=== PATIENT | male | born 1945 | race Caucasian/White ===

== ENCOUNTER 2021-06-18 16:34 | Inpatient (IN) | payer MEDICARE, OTHER ==
[~2021-06-18] VITALS: Ht 172.7 cm; Wt 59.9 kg
--- NOTE | 2021-06-18 16:34 | NUR ---
PT BIB [facility],WAS THERE BECAUSE OF COUGHING X FEW DAYS. PT IS AAOX3, NOT IN RESPIRATORY DISTRESS, HOOKED TO O2 AT 3 LPM VIA NC, HOOKED TO BUSINESS OBJECTS CONSULTANT, KEPT RESTED AND COMFORTABLE. WILL CONTINUE TO MONITOR.
--- NOTE | 2021-06-18 16:56 | NUR ---
SEEN AND EXAMINED BY .
[2021-06-18] MEDS ORDERED: IPRATROPIUM NEB FS 0.5 MG/2.5 ML AMPUL.NEB NEB ONE (17:00)
[2021-06-18] MEDS ORDERED: methylPREDNISolone SOD SUCC 125 MG/2ML VIAL IV ONE (17:00)
[2021-06-18] MEDS ORDERED: IV NS 0.9% 500 ML IV ONE (17:00)
[2021-06-18] MEDS ORDERED: ALBUTEROL FS 2.5 MG/3 ML VIAL.NEB NEB ONE (17:00)
--- NOTE | 2021-06-18 17:20 | NUR ---
IV LINE ESTABLISHED BLOOD DRAWN AND SENT TO LAB.
[2021-06-18] MEDS ORDERED: methylPREDNISolone SOD SUCC 125 MG/2ML VIAL ONE (17:27)
[2021-06-18 17:28] LABS: BASOPHILS # (AUTO) 0.1 K/uL (0.0-0.2); BASOPHILS % (AUTO) 0.6 % (0.0-2.0); EOSINOPHILS % (AUTO) 1.3 % (0.0-6.0); HEMATOCRIT 47 % (39-51); HEMOGLOBIN 15.6 g/dL (13.5-17.5); LYMPHOCYTES # (AUTO) 1.9 K/uL (0.8-4.8); LYMPHOCYTES % (AUTO) 16.1 % (20.0-44.0); MEAN CORPUSCULAR HGB CONC 34 g/dl (31.0-36.0); MEAN CORPUSCULAR VOLUME 85 fL (80-96); MONOCYTES # (AUTO) 0.7 K/uL (0.1-1.30); MONOCYTES % (AUTO) 6.4 % (2.0-12.0); NEUTROPHILS # (AUTO) 8.8 K/uL (1.8-8.9); NEUTROPHILS % (AUTO) 75.6 % (43.0-81.0); PLATELET COUNT (AUTO) 259 K/uL (150-450); RED BLOOD CELL COUNT(AUTO) 5.47 MIL/uL (4.5-6.0); WHITE BLOOD COUNT (AUTO) 11.6 K/uL (4.3-11.0)
--- NOTE | 2021-06-18 17:30 | NUR ---
FULL STACK SOFTWARE ENGINEER AT BEDSIDE FOR XRAY.
[2021-06-18] MEDS ORDERED: ALBUTEROL FS 2.5 MG/3 ML VIAL.NEB ONE (17:33)
[2021-06-18] MEDS ORDERED: IPRATROPIUM NEB FS 0.5 MG/2.5 ML AMPUL.NEB ONE (17:33)
[2021-06-18 18:03] LABS: BILIRUBIN,DIRECT 0.3 mg/dL (0.0-0.2); BILIRUBIN,TOTAL 1.2 mg/dL (0.2-1.0); CALCIUM, SERUM 8.7 mg/dL (8.5-10.1); CREATININE 1.1 mg/dL (0.6-1.3); POTASSIUM 4.4 mmol/L (3.5-5.1); TOTAL PROTEIN, SERUM 7.3 g/dL (6.4-8.2)
--- NOTE | 2021-06-18 18:11 | NUR ---
MOVE SHEET SUBMITTED AND CALLED FOR TELE BED.
--- NOTE | 2021-06-18 19:21 | NUR ---
BED ASSIGNMENT: 200
--- NOTE | 2021-06-18 21:44 | NUR ---
REPORT GIVEN TO NURSE MS2
[2021-06-18 22:10] VITALS: BP 135/76
--- NOTE | 2021-06-18 22:13 | NUR ---
PT TRANSFERRED UNDER ACLS
[2021-06-18] MEDS ORDERED: ALBUTEROL FS 2.5 MG/0.5 ML VIAL.NEB NEB PRN (22:30)
[2021-06-18] MEDS ORDERED: MAG HYDROX/AL HYDROX/SIMETH 30 ML UDC PO PRN (22:30)
[2021-06-18] MEDS ORDERED: HYDROCODONE/APAP 5/325MG TABLET PO PRN (22:30)
[2021-06-18] MEDS ORDERED: ZOLPIDEM TARTRATE 5 MG TABLET PO PRN (22:30)
[2021-06-18] MEDS ORDERED: ACETAMINOPHEN 325 MG TABLET PO PRN (22:30)
[2021-06-18] MEDS ORDERED: ONDANSETRON HCL/PF 4 MG/2 ML VIAL IVP PRN (22:30)
[2021-06-18] MEDS ORDERED: MAGNESIUM HYDROXIDE 30 ML UDC PO PRN (22:30)
[2021-06-18] MEDS ORDERED: IPRATROPIUM NEB FS 0.5 MG/2.5 ML AMPUL.NEB NEB PRN (22:30)
[2021-06-18] MEDS: ENOXAPARIN SODIUM 40 MG/0.4 ML DISP.SYRIN SQ SCH (22:48)
--- NOTE | 2021-06-18 22:49 | NUR ---
ANTICOAGULANT H/H 15.6 PLT 259 No s/s of bleeding. Lovenox injection given co-signed by WILL Collins.
[2021-06-18 23:52] VITALS: BP 121/81
[2021-06-18] MEDS: methylPREDNISolone SOD SUCC 125 MG/2ML VIAL IV SCH (23:52)
--- NOTE | 2021-06-19 00:05 | NUR ---
ADMISSION 22:07 76 Y/O male A/O x4 ambulatory. [place] to room, unit, staff. Skin checked done, sacrococcyx discoloration, skin photo in the chart. Patient is independent with ADL's and mobility. Covid PCR pending result. On supplemental O2 4L NC, denies chest pain, no c/o SOB. Call light within reach. Will cont to monitor.
[2021-06-19 03:39] VITALS: BP 138/92
[2021-06-19] MEDS: methylPREDNISolone SOD SUCC 125 MG/2ML VIAL IV SCH ×3 (06:12→17:05)
--- NOTE | 2021-06-19 06:13 | NUR ---
END OF SHIFT Patient in bed, A/O x4. On Oxygen support 4L NC Oxygen sat in mid 90's. Denies chest pain. Sinus Tach/ Sinus Rhythm in the Tele monitor. Independent with ADL's and mobility. Plan for PT eval and wound care consult today. Will endorse to oncoming RN.
--- NOTE | 2021-06-19 07:32 | NUR ---
RN OPENING NOTES Patient seen comfortably lying in bed, no SOB, no apparent distress noted, breathing even and unlabored, denies any pain or discomfort at this time, no grimacing. Call light left within reach, safety precautions in place, brakes locked, side rails up X 2, will monitor closely for any changes.
[2021-06-19] MEDS: PANTOPRAZOLE 40 MG TABLET.DR PO SCH (07:58)
[2021-06-19 08:00] VITALS: BP 122/74
--- NOTE | 2021-06-19 18:14 | NUR ---
RN CLOSING NOTES Patient lying in bed, alert, oriented X 4, no apparent distress noted, no shortness of breath, breathing even and unlabored, denies any pain or discomfort, no grimacing, and remained afebrile, no dizziness, no palpitations, no chest pain during shift. All medications given per MD order, tolerating well. No nausea, no vomiting, abdominal bowel sound present in all quadrant, no grimacing when abdomen palpated. Aspiration precautions observed at all times, kept head of bed elevated, all needs anticipated, kept clean and dry, safety precautions in place, side rails up X 2, brakes locked, call light left within reach, will endorse to next shift for continuity of care.
--- NOTE | 2021-06-19 19:15 | NUR ---
IMPLEMENTATION TECHNICIAN NOTES RECEIVED ON BED A/O X4,TALKING TO FAMILY MEMBERS ON HIS CP,BREATHING NON LABORED,O2 4L/NC IN USED,DROPLET ISOLATION,PENDING PCR RESULT,NOTED ON AND OFF PRODUCTIVE COUGH,ABLE TO EXPECTORATE MUCUS.SALINE LOCK RIGHT AC INTACT AND PATENT.CALL LIGHT IN REACH,NEEDS ANTICIPATED.
--- NOTE | 2021-06-19 19:30 | NUR ---
WIND FIELD MANAGER NOTES ST-[facility] ON TELE MONITOR.
[2021-06-19 20:00] VITALS: BP 106/74
[2021-06-19] MEDS: ENOXAPARIN SODIUM 40 MG/0.4 ML DISP.SYRIN SQ SCH (20:41)
[2021-06-20] VITALS: BP 114/80
[2021-06-20] MEDS: methylPREDNISolone SOD SUCC 125 MG/2ML VIAL IV SCH ×4 (00:14→17:40)
--- NOTE | 2021-06-20 02:10 | NUR ---
RN notes Received Pt from WILL De La O. Pt is alert and orientedX4. Respiration on 4L NC. No SOB. No S/S of distress noted. IV site at RAC# 20 is clean, intact and SL. Tele monitor showed s.tachy. SAfety precautions is maintained. Will continue to monitor.
--- NOTE | 2021-06-20 02:15 | NUR ---
RN notes Transferred Pt to room 116 with ACLS protocol and O2 supplementation.
[2021-06-20 04:00] VITALS: BP 126/83
--- NOTE | 2021-06-20 06:41 | NUR ---
RN closing notes Pt is resting in bed comfortably. Pt is alert and orientedX4. Respiration on 4L NC. No SOB. No S/S of distress noted. IV site at RAC# 20 is clean, intact and SL. Tele monitor showed SR hr at 70. Routine meds were given as ordered. Kept Pt clean, dry and comfortable. Safety precautions is maintained. Bed at low position, brakes locked, side rails upX2, hob elevated, and call light is within reach. Will endorse to am nurse for MIRNA.
--- NOTE | 2021-06-20 07:30 | NUR ---
RN OPENING NOTE PATIENT RESTING IN BED COMFORTABLY UPON ASSESSMENT. PATIENT IS A/0X4. PATIENT IS ON 4LPM VIA NASAL CANNULA TOLERATING WELL WITH SPO2 OF 98%. NO SOB OR DISTRESS NOTED AT THIS TIME. RAC PIV IS PATENT AND INTACT. NSR ON TELE IN THE 70'S. PATIENT BED KEPT IN THE LOWEST POSITION AND WHEELS LOCKED IN PLACE. CALL LIGHT WITHIN REACH. ALL SAFETY MEASURES NOTED AND ACCOUNTED FOR. WILL CONTINUE TO MONITOR.
--- NOTE | 2021-06-20 08:03 | NUR ---
WOUND CARE CONSULT: REVIEWED CHART, NURSING DOCUMENTATION AND PHOTO WHICH INDICATES SACRAL DEEP TISSUE INJURY, PRESENT ON ADMISSION. RECOMMENDATIONS MADE FOR SKIN PROTECTION. DISCUSSED WITH NURSING STAFF. PT IS ON [facility] LOW AIRLOSS BED. MD IN AGREEMENT WITH PLAN OF CARE.
[2021-06-20] MEDS: PANTOPRAZOLE 40 MG TABLET.DR PO SCH (08:55)
--- NOTE | 2021-06-20 18:49 | NUR ---
RN CLOSING NOTE PATIENT REMAINED STABLE THROUGHOUT SHIFT. PATIENT RESTING IN BED COMFORTABLY. PATIENT IS A/0X4. PATIENT IS ON 4LPM VIA NASAL CANNULA TOLERATING WELL WITH SPO2 OF 98%. NO SOB OR DISTRESS NOTED AT THIS TIME. RAC PIV IS PATENT AND INTACT. NSR ON TELE IN THE 70'S. PATIENT RECEIVED ALL DUE MEDS ORDERED. PATIENT BED KEPT IN THE LOWEST POSITION AND WHEELS LOCKED IN PLACE. CALL LIGHT WITHIN REACH. ALL SAFETY MEASURES NOTED AND ACCOUNTED FOR. WILL ENDORSE TO GEODETIC ENGINEER RN.
--- NOTE | 2021-06-20 19:10 | NUR ---
RN NOTES RECEIVED REPORT FROM MORNING RN PATIENT IN BED A/O X4. ON OXYGEN INHALATION AT 4 LPM VIA NASAL CANULA SATING 94%. NO DISTRESS NO SOB NOTED AT THIS TIME. WITH IV ACCESS AT R AC #20 INTACT FLUSHES WELL. VITAL SIGNS TAKEN AND RECORDED AFEBRILE. ALL SAFETY MEASURES IN PLACE AT ALL TIMES. CALL LIGHT WITHIN REACH. BED ON LOWEST POSITION AND LOCKED. HOB ELEVATED. WILL CLOSELY MONITOR THE PATIENT
[2021-06-20 20:00] VITALS: BP 107/67
[2021-06-20] MEDS: ENOXAPARIN SODIUM 40 MG/0.4 ML DISP.SYRIN SQ SCH (21:32)
[2021-06-21] VITALS: BP 110/69
[2021-06-21] MEDS: methylPREDNISolone SOD SUCC 125 MG/2ML VIAL IV SCH ×3 (00:04→11:41)
[2021-06-21 04:00] VITALS: BP 118/69
--- NOTE | 2021-06-21 06:56 | NUR ---
RN NOTES PATIENT REMAINED STABLE THROUGHOUT SHIFT. PATIENT RESTING IN BED COMFORTABLY. PATIENT IS A/0X4. PATIENT IS ON 4LPM VIA NASAL CANNULA TOLERATING WELL WITH SPO2 OF 98%. NO SOB OR DISTRESS NOTED AT THIS TIME. RAC PIV IS PATENT AND INTACT. NSR ON TELE IN THE 70'S. PATIENT RECEIVED ALL DUE MEDS ORDERED. PATIENT BED KEPT IN THE LOWEST POSITION AND WHEELS LOCKED IN PLACE. CALL LIGHT WITHIN REACH. ALL SAFETY MEASURES NOTED AND ACCOUNTED FOR. WILL ENDORSE TO MORNING SHIFT RN.
[2021-06-21 07:20] LABS: BASOPHILS % (AUTO) 0.1 % (0.0-2.0); HEMATOCRIT 43 % (39-51); HEMOGLOBIN 14.2 g/dL (13.5-17.5); LYMPHOCYTES # (AUTO) 0.6 K/uL (0.8-4.8); LYMPHOCYTES % (AUTO) 6.8 % (20.0-44.0); MEAN CORPUSCULAR HGB CONC 33 g/dl (31.0-36.0); MEAN CORPUSCULAR VOLUME 87 fL (80-96); MONOCYTES # (AUTO) 0.4 K/uL (0.1-1.30); MONOCYTES % (AUTO) 3.9 % (2.0-12.0); NEUTROPHILS # (AUTO) 8.3 K/uL (1.8-8.9); NEUTROPHILS % (AUTO) 89.2 % (43.0-81.0); PLATELET COUNT (AUTO) 209 K/uL (150-450); RED BLOOD CELL COUNT(AUTO) 4.91 MIL/uL (4.5-6.0); WHITE BLOOD COUNT (AUTO) 9.3 K/uL (4.3-11.0)
--- NOTE | 2021-06-21 07:30 | NUR ---
SHIP ERECTOR OPENING NOTES RECEIVED PATIENT ON BED AWAKE AND A/O X4. ON O2 AT 4LPM VIA NASAL CANNULA TOLERATING WELL. NO SOB NOTED. NOT IN DISTRESS. WITH NO COMPLAINTS OF PAIN OR DISCOMFORT AT THIS TIME. WITH IV ACCESS AT RIGHT AC G20 SALINE LOCKED, PATENT AND INTACT. ON TELE MONITOR CURRENTLY READING SINUS RHYTHM AT 82BPM. SAFETY MEASURES IN PLACED. CALL LIGHT WITHIN REACH. BED ON LOWEST LOCKED POSITION, SIDE RAILS UP X2. WILL CONTINUE TO MONITOR.
--- NOTE | 2021-06-21 08:15 | NUR ---
RN NOTES TRANSFERRED PATIENT TO [facility] AND ENDORSED TO WILL MARRERO.
--- NOTE | 2021-06-21 08:20 | NUR ---
CUE WORKERMACHINE PRECISION ENGRAVER NOTES RECEIVED TRANSFER FROM [facility]. PATIENT MEDICALLY STABLE. WILL CONTINUE TO MONITOR.
[2021-06-21 08:56] LABS: CALCIUM, SERUM 9.1 mg/dL (8.5-10.1); CREATININE 0.9 mg/dL (0.6-1.3); MAGNESIUM 3.3 mg/dL (1.8-2.4); POTASSIUM 5.3 mmol/L (3.5-5.1)
[2021-06-21] MEDS: PANTOPRAZOLE 40 MG TABLET.DR PO SCH (09:11)
[2021-06-21] MEDS ORDERED: SODIUM POLYSTYRENE SULFONATE 15 G/60 ML BOTTLE PO ONE (10:00)
[2021-06-21 12:00] VITALS: BP 135/84
[2021-06-21] MEDS ORDERED: METH4TAB3 PO (12:07)
--- NOTE | 2021-06-21 15:15 | NUR ---
PAINTER BOTTOMSYSTEM DESIGNER NOTES DISCHARGED PATIENT HOME IN MEDICALLY STABLE CONDITION. PATIENT ABLE TO MAKE NEEDS KNOWN. ALL DISCHARE DOCUMENTATION READY AND DISCHARGE TEACHING PROVIDED TO PATIENT; PATIENT VERBALIZED UNDERSTANDING AND PAPERS SIGNED. BELONGINGS ACCOUNTED FOR AND FORM SIGNED WELL. REFUSED PIC. OXYGEN DELIVERED. IV ACCESS REMOVED PRIOR TO LEAVING THE FLOOR. PATIENT LEFT THE UNIT VIA WHEELCHAIR ACCOMPANIED BY RN AND ADOLESCENT MEDICINE SPECIALIST. LEFT IN A PRIVATE CAR.
[2021-06-21 20:39] LABS: ABG BASE EXCESS -2.9 mmol/L; ABG OXYGEN SATURATION 97.5 % (92.0-98.5); ABG PCO2 39.2 mmHg (35.0-45.0); ABG PH 7.368 (7.350-7.450); ABG PO2 105.1 mmHg (75.0-100.0); AaDO2 106.1 mmHg; COHb 1.2 % (0.5-1.5); MetHb 0.2 % (0.0-1.5); O2Hb 96.1 % (94.0-97.0); SITE, ABG Right Radial; VENT MODE, BG 4LPM VIA N/C
[2021-06-21 20:40] LABS: ABG BASE EXCESS 3.1 mmol/L; ABG OXYGEN SATURATION 86.6 % (92.0-98.5); ABG PH 7.422 (7.350-7.450); ABG PO2 50.5 mmHg (75.0-100.0); AaDO2 46.5 mmHg; COHb 1.5 % (0.5-1.5); MetHb 0.1 % (0.0-1.5); O2Hb 85.2 % (94.0-97.0); SITE, ABG Left Radial; VENT MODE, BG room air
== END 2021-06-21 15:15 | disposition home or self-care (01) | DRG 196 ==
LOC: ER 17:17 → TELE2 19:45 → TELE1 06-20 03:01 → TELE 06-21 08:42
PROVIDERS: ADMIT Nurse Practitioner Family; ATTEND Nurse Practitioner Family
DX: J84.112 Idiopathic pulmonary fibrosis (principal); J96.01 Acute respiratory failure with hypoxia; J44.1 Chronic obstructive pulmonary disease with (acute) exacerbation; E44.1 Mild protein-calorie malnutrition; Z20.822 Contact with and (suspected) exposure to COVID-19; Z98.890 Other specified postprocedural states; Z87.891 Personal history of nicotine dependence; E88.09 Other disorders of plasma-protein metabolism, not elsewhere classified; D72.829 Elevated white blood cell count, unspecified
CPT/HCPCS: 36415; 36600; 71045-TC; 71250-TC; 76700-TC; 80048-TC; 80076-TC; 82803-TC; 83735-TC; 85025-TC; 87081-TC; 93307-TC; 97116-TC; 97530-TC; C9803; G0378; J1650; J2930; U0003